=== PATIENT | female | born 1945 | race African-American/Black ===

== ENCOUNTER 2018-04-27 09:30 | Outpatient (CLI) | payer MEDICARE | END 2018-04-27 09:31 | disposition home or self-care (01) | LOC: BICMAMMO 09:30 | PROVIDERS: ATTEND Internal Medicine | DX: Z12.31 Encounter for screening mammogram for malignant neoplasm of breast (principal); Z80.3 Family history of malignant neoplasm of breast | CPT/HCPCS: 77063; 77067 ==

== ENCOUNTER 2019-04-28 07:50 | Outpatient (CLI) | payer MEDICARE ==
--- NOTE | 2019-04-28 10:09 | MMO ---
Bilateral MAMMO Bilat Screen [facility]. CLINICAL HISTORY: Patient is 74 years old and is seen for screening. The patient has the following family history of breast cancer: cousin female. The patient has no personal history of cancer. VIEWS: The views performed were: bilateral craniocaudal with tomosynthesis and bilateral mediolateral oblique with tomosynthesis. FILMS COMPARED: The present examination has been compared to prior imaging studies performed at [facility] on 04/19/2015, 04/22/2016, 04/24/2017 and 04/27/2018. MAMMOGRAM FINDINGS: There are scattered fibroglandular densities. Benign calcifications are noted bilaterally. There are no suspicious masses, suspicious calcifications, or new areas of architectural distortion. IMPRESSION: THERE IS NO MAMMOGRAPHIC EVIDENCE OF MALIGNANCY. A ROUTINE FOLLOW-UP MAMMOGRAM IN 1 YEAR IS RECOMMENDED. THE RESULTS OF THIS EXAM WERE SENT TO THE PATIENT. ACR BI-RADS Category 2 - Benign finding MAMMOGRAPHY NOTE: 1. A negative mammogram report should not delay a biopsy if a dominant of clinically suspicious mass is present. 2. Approximately 10% to 15% of breast cancers are not detected by mammography. 3. Adenosis and dense breasts may obscure an underlying neoplasm. Reported by: MELANIE EMERSON MD Electonically Signed: [id number]
== END 2019-04-28 07:51 | disposition home or self-care (01) ==
LOC: BICMAMMO 07:50
PROVIDERS: ATTEND Internal Medicine
DX: Z12.31 Encounter for screening mammogram for malignant neoplasm of breast (principal); Z80.3 Family history of malignant neoplasm of breast
CPT/HCPCS: 77063; 77067

== ENCOUNTER 2019-05-10 08:04 | Outpatient (CLI) | payer MEDICARE ==
--- NOTE | 2019-05-10 10:53 | BD ---
DEXA BONE DENSITY STUDY: Date: 05/10/19 HISTORY: 74-year-old postmenopausal female for screening. FINDINGS: Lumbar Spine: BMD (g/cm2) L1 0.863 T-Score: -1.2 L2 0.878 T-Score: -1.4 L3 0.878 T-Score: -1.9 L4 0.875 T-Score: -1.7 L1-L4 0.874 T-Score: -1.6 Left Femoral Neck: 0.762 T-Score: -0.8 Total Femur: 1.065 T-Score: 1.0 IMPRESSION: Osteopenia. This patient has a 10 year WHO fracture risk for a major osteoporotic fracture of 3.8% an d for a hip fracture of 0.5%. POS: ABIMAEL
== END 2019-05-10 08:05 | disposition home or self-care (01) ==
LOC: BICMAMMO 08:04
PROVIDERS: ATTEND Obstetrics & Gynecology
DX: Z13.820 Encounter for screening for osteoporosis (principal); M85.852 Other specified disorders of bone density and structure, left thigh
CPT/HCPCS: 77080

== ENCOUNTER 2019-12-30 11:01 | Emergency (ER) | payer MEDICARE ==
--- NOTE | 2019-12-30 12:18 | ULT ---
LEFT LOWER EXTREMITY VENOUS DUPLEX EXAM: Date: 12/30/2019 Deep veins of the left lower extremity evaluated with ultrasound and Doppler. Color Doppler with spec tral analysis and compression studies performed. INDICATION: Left lower extremity pain and edema. FINDINGS: Veins of left lower extremity show normal blood flow and compression. No evidence of deep venous thro mbosis. IMPRESSION: Negative left lower extremity venous duplex exam. POS: AGW
== END 2019-12-30 12:50 | disposition home or self-care (01) ==
LOC: ERS 11:01
DX: I83.92 Asymptomatic varicose veins of left lower extremity (principal); I10 Essential (primary) hypertension; K21.9 Gastro-esophageal reflux disease without esophagitis; Z79.84 Long term (current) use of oral hypoglycemic drugs; Z79.899 Other long term (current) drug therapy

== ENCOUNTER 2020-05-01 07:34 | Outpatient (CLI) | payer MEDICARE ==
--- NOTE | 2020-05-01 08:34 | MMO ---
Bilateral MAMMO Bilat Screen [facility]. CLINICAL HISTORY: Patient is 75 years old and is seen for screening. The patient has the following family history of breast cancer: cousin female. The patient has no personal history of cancer. VIEWS: The views performed were: bilateral craniocaudal with tomosynthesis; bilateral mediolateral oblique with tomosynthesis; and right mediolateral oblique. FILMS COMPARED: The present examination has been compared to prior imaging studies performed at [facility] on 04/22/2016, 04/24/2017, 04/27/2018 and 04/28/2019. This study has been interpreted with the assistance of computer-aided detection. MAMMOGRAM FINDINGS: There are scattered fibroglandular densities. Benign calcifications are noted bilaterally. There are no suspicious masses, suspicious calcifications, or new areas of architectural distortion. IMPRESSION: THERE IS NO MAMMOGRAPHIC EVIDENCE OF MALIGNANCY. A ROUTINE FOLLOW-UP MAMMOGRAM IN 1 YEAR IS RECOMMENDED. THE RESULTS OF THIS EXAM WERE SENT TO THE PATIENT. ACR BI-RADS Category 2 - Benign finding MAMMOGRAPHY NOTE: 1. A negative mammogram report should not delay a biopsy if a dominant of clinically suspicious mass is present. 2. Approximately 10% to 15% of breast cancers are not detected by mammography. 3. Adenosis and dense breasts may obscure an underlying neoplasm. Reported by: MELANIE EMERSON MD Electonically Signed: [id number]
== END 2020-05-01 07:35 | disposition home or self-care (01) ==
LOC: BICMAMMO 07:34
PROVIDERS: ATTEND Internal Medicine
DX: Z12.31 Encounter for screening mammogram for malignant neoplasm of breast (principal); Z80.3 Family history of malignant neoplasm of breast
CPT/HCPCS: 77063; 77067

== ENCOUNTER 2022-05-06 07:54 | Outpatient (CLI) | payer MEDICARE | END 2022-05-06 07:55 | disposition home or self-care (01) | LOC: BICMAMMO 07:54 | PROVIDERS: ATTEND Internal Medicine | DX: Z12.31 Encounter for screening mammogram for malignant neoplasm of breast (principal); Z80.3 Family history of malignant neoplasm of breast | CPT/HCPCS: 77063; 77067 ==

== ENCOUNTER 2023-05-15 14:25 | Outpatient (CLI) | payer MEDICARE | END 2023-05-15 14:26 | disposition home or self-care (01) | LOC: BICMAMMO 14:25 | PROVIDERS: ATTEND Internal Medicine | DX: Z12.31 Encounter for screening mammogram for malignant neoplasm of breast (principal); Z80.3 Family history of malignant neoplasm of breast | CPT/HCPCS: 77063; 77067 ==

== ENCOUNTER 2025-05-18 09:03 | Outpatient (CLI) | payer MEDICARE | END 2025-05-18 09:04 | disposition home or self-care (01) | LOC: BICMAMMO 09:03 | PROVIDERS: ATTEND Internal Medicine | DX: Z12.31 Encounter for screening mammogram for malignant neoplasm of breast (principal); Z80.3 Family history of malignant neoplasm of breast | CPT/HCPCS: 77063; 77067 ==

== ENCOUNTER 2025-10-04 19:26 | Emergency (ER) | payer MEDICARE ==
[2025-10-04 21:06] LABS: #Basophils Less than 0.03 10x3/uL (0.0-0.2); #Eosinophils 0.05 10x3/uL (0.0-0.7); #Monocytes 0.39 10x3/uL (0.11-0.59); #Neutrophils 2.62 10x3/uL (1.40-6.50); %Basophils 0.2 % (0.0-1.0); %Eosinophils 0.8 % (0.0-10.0); %Lymphocytes 47.8 % (21.0-51.0); %Monocytes 6.6 % (0.0-10.0); %Neutrophils 44.3 % (42.0-75.0); Hematocrit 43.9 % (36.0-47.0); Hemoglobin 14.1 g/dL (12.0-16.0); Mean Corpuscular Hemoglobin 30.5 pg (27.0-31.0); Mean Corpuscular Volume 94.8 fL (78.0-98.0); Platelet Count 196 10x3/uL (130-400); Red Blood Cell (RBC) Count 4.63 mill/uL (4.20-5.40); White Blood Cell (WBC) Count 5.92 10x3/uL (4.8-10.8)
[2025-10-04 22:37] LABS: Chloride 103 mmol/L (98-107); Potassium 3.3 mmol/L (3.5-5.1); Sodium 142 mmol/L (136-145)
[2025-10-04 22:38] LABS: Albumin 4.0 g/dL (3.1-4.5); Calcium 9.8 mg/dL (7.8-10.44)
[2025-10-04 22:39] LABS: Globulin 3.5 g/dL (2.4-3.5); Glucose 108 mg/dL (83-110)
[2025-10-04 22:40] LABS: Anion Gap 17 mmol/L (10-20); Carbon Dioxide 25 mmol/L (23-31)
[2025-10-04 22:42] LABS: Alkaline Phosphatase 73 U/L (40-110); Bilirubin, Total 0.5 mg/dL (0.3-1.2)
[2025-10-04 22:43] LABS: BUN (Urea Nitrogen) 18 mg/dL (9.8-20.1); Calc. Creatinine Clearance 0 mL/min (70-130)
[2025-10-04 22:45] LABS: ALT (SGPT) 18 U/L (Less than 34); AST (SGOT) 20 U/L (11-34)
[2025-10-04] MEDS ORDERED: predniSONE 20 MG TAB ONE (23:12)
== END 2025-10-04 23:15 | disposition home or self-care (01) ==
LOC: ERS 19:26
DX: R05.9 Cough, unspecified (principal); I11.0 Hypertensive heart disease with heart failure; I50.9 Heart failure, unspecified
CPT/HCPCS: 36415; 71045; 80053; 83880; 84484; 85025; 87428; 93005; J7512